=== PATIENT | male | born 1995 | race Caucasian/White ===

== ENCOUNTER 2017-03-08 21:44 | Emergency (ER) | payer OTHER ==
[~2017-03-08] VITALS: Ht 177.8 cm; Wt 64.3 kg
[2017-03-08 22:43] LABS: HEMATOCRIT 44.3 % (38.0-50.0); HEMOGLOBIN 15.6 G/DL (12.5-16.6); MCH 30.1 PG (29.0-34.0); MCHC 35.2 G/DL (30.0-36.0); MCV 85.4 FL (86-99); PLATELET COUNT 310 K/uL (156-360); RBC DIS.WIDTH-CV 11.6 % (11.8-14.6); RBC DIS.WIDTH-SD 35.9 % (39-53); RED BLOOD COUNT 5.19 M/uL (4.00-5.50); WHITE BLOOD COUNT 7.9 K/uL (4.1-10.2)
[2017-03-08 22:58] LABS: ALBUMIN 4.4 g/dL (3.2-4.8); CHLORIDE 106 mEq/L (99-109); POTASSIUM 3.4 mEq/L (3.7-5.4); SODIUM 138 mEq/L (136-147)
[2017-03-08 23:01] LABS: GLUCOSE 97 mg/dL (70-99); TOTAL PROTEIN 7.3 g/dL (6.4-8.3)
[2017-03-08 23:04] LABS: ALKALINE PHOSPHATASE 58 IU/L (3-129); CREATININE 0.8 mg/dL (0.6-1.3)
[2017-03-08 23:05] LABS: UREA NITROGEN (BUN) 13 mg/dL (9-23)
[2017-03-08 23:06] LABS: AST (GOT) 17 IU/L (2-34)
[2017-03-08 23:07] LABS: ALT (GPT) 11 IU/L (3-49); GFR ESTIMATE (CALCULATED) > 59 mL/min/ (58.99-99999)
[2017-03-08 23:08] LABS: LIPASE 13 U/L (1.0-51.0)
[2017-03-09 02:50] LABS: APPEARANCE CLEAR ((CLEAR)); BILIRUBIN NEGATIVE; BLOOD SMALL; COLOR YELLOW ((YELLOW)); GLUCOSE (STRIP) NEGATIVE; KETONES 20; LEUKOCYTES NEGATIVE; NITRITE NEGATIVE; PROTEIN (STRIP) NEGATIVE; SPECIFIC GRAVITY 1.029 (1.000-1.030)
[2017-03-09] MEDS ORDERED: ATIVAN0.5 MG PO (02:50)
[2017-03-09 02:52] LABS: BACTERIA NONE SEEN /HPF; EPITHELIAL CELLS NONE SEEN /HPF; MUCUS 1+ /LPF; RED BLOOD CELLS 15-20 /HPF (0-5); UCUL ADDED? NO; WHITE BLOOD CELLS 0-5 /HPF (0-5)
[2017-03-09 03:38] VITALS: BP 97/84
== END 2017-03-09 03:38 | disposition home or self-care (01) ==
LOC: EME 21:44
DX: R07.9 Chest pain, unspecified (principal); F41.9 Anxiety disorder, unspecified; F17.200 Nicotine dependence, unspecified, uncomplicated
CPT/HCPCS: 80053; 81003; 83690; 85027; 93005; 99281; 99284